=== PATIENT | female | born 1960 | race Caucasian/White ===

== ENCOUNTER 2017-12-03 12:58 | Outpatient (CLI) | payer BC | END 2017-12-03 12:59 | disposition home or self-care (01) | LOC: BICMAMMO 12:58 | PROVIDERS: ATTEND Obstetrics & Gynecology | DX: Z12.31 Encounter for screening mammogram for malignant neoplasm of breast (principal); R92.1 Mammographic calcification found on diagnostic imaging of breast | CPT/HCPCS: 77063; 77067 ==

== ENCOUNTER 2021-03-18 11:49 | Outpatient (CLI) | payer BC ==
[2021-03-18 12:56] LABS: Hemoglobin 13.1 g/dL (12.0-15.5); Mean Corpuscular HGB CONC 32.7 g/dL (32.0-36.0); Mean Corpuscular Hemoglobin 27.6 pg (27.0-33.0); Mean Corpuscular Volume 84.6 fl (81.6-98.3); Mean Platelet Volume 10.9 fl (7.4-10.4); Platelet Count 286 10x3/uL (150-450); Red Blood Cell (RBC) Count 4.74 10x6/uL (3.90-5.03); White Blood Cell (WBC) Count 4.6 10x3/uL (3.5-10.5)
[2021-03-18 13:21] LABS: INR-International Normal Ratio 0.9; PTT 25.4 sec (22.0-33.0); Prothrombin Time 10.3 sec (9.5-12.1)
[2021-03-18 22:22] LABS: SARS-CoV-2 PCR by NAA Not Detected (NotDetected)
== END 2021-03-18 11:50 | disposition home or self-care (01) ==
LOC: LABBT 11:49
PROVIDERS: ATTEND Neurological Surgery
DX: Z01.818 Encounter for other preprocedural examination (principal); M50.223 Other cervical disc displacement at C6-C7 level; Z20.822 Contact with and (suspected) exposure to COVID-19
CPT/HCPCS: 85027; 85610; 85730; 93005; 93010; U0003; U0005

== ENCOUNTER 2021-03-21 10:29 | Day surgery (SDC) | payer BC ==
[2021-03-20 13:30] VITALS: BMI 31.4
[2021-03-21] MEDS ORDERED: Neomycin-Polymyxin 1 ML AMP ONE (10:59)
[2021-03-21] MEDS ORDERED: Thrombin 5000 UNITS/5 ML VIAL ONE (10:59)
[2021-03-21] MEDS ORDERED: Fentanyl 100 MCG/2 ML VIAL ONE ×2 (11:11→12:22)
[2021-03-21] MEDS ORDERED: Midazolam HCl 2 mg/2 ml Vial ONE (11:11)
[2021-03-21] MEDS ORDERED: Levofloxacin 500 mg/D5W 100 ml Premix Bag ONE (12:13)
[2021-03-21] MEDS ORDERED: Clindamycin/D5W 900 mg/50 ml Premix Bag ONE (12:13)
[2021-03-21] MEDS ORDERED: Ondansetron PF 4 MG/2 ML Vial ONE (12:24)
[2021-03-21] MEDS ORDERED: Lidocaine 1% PF 5 ML VIAL ONE (12:24)
[2021-03-21] MEDS ORDERED: PHENYLEPHRINE-NS 100 MCG/ML 10 ML SYRINGE ONE (12:24)
[2021-03-21] MEDS ORDERED: Glycopyrrolate 0.2 MG/ML 5 ML SYRINGE ONE (12:24)
[2021-03-21] MEDS ORDERED: Rocuronium Bromide 10 MG/ML (10ML VIAL) ONE (12:24)
[2021-03-21] MEDS ORDERED: Dexamethasone 20 MG/5 ML VIAL ONE (12:24)
[2021-03-21] MEDS ORDERED: Succinylcholine 200 MG/10 ml SYRINGE FS ONE (12:24)
[2021-03-21] MEDS ORDERED: ePHEDrine 50 MG/ML VIAL ONE (12:24)
[2021-03-21] MEDS ORDERED: PROPOFOL 200 MG/20 ML VIAL ONE (12:24)
[2021-03-21] MEDS ORDERED: Lidocaine 1% w/Epinephrine 1:100K 20 ML VIAL ONE (12:39)
[2021-03-21] MEDS ORDERED: Promethazine HCl 25 MG/ML VIAL ONE (18:40)
[2021-03-21] MEDS ORDERED: HYDROcodone/Acetaminophen 7.5/325 mg Tablet ONE (19:18)
== END 2021-03-21 20:00 | disposition home or self-care (01) ==
LOC: SDC 10:29
PROVIDERS: ATTEND Neurological Surgery
PROC: 0RT30ZZ Resection of Cervical Vertebral Disc, Open Approach (ICD-10-PCS; principal; 2021-03-21)
PROC: 0RG20A0 Fusion of 2 or more Cervical Vertebral Joints with Interbody Fusion Device, Anterior Approach, Anterior Column, Open Approach (ICD-10-PCS; principal; 2021-03-21)
DX: M50.121 Cervical disc disorder at C4-C5 level with radiculopathy (principal); I10 Essential (primary) hypertension; E78.5 Hyperlipidemia, unspecified; E03.9 Hypothyroidism, unspecified; K21.9 Gastro-esophageal reflux disease without esophagitis; E78.00 Pure hypercholesterolemia, unspecified; M81.0 Age-related osteoporosis without current pathological fracture; G43.909 Migraine, unspecified, not intractable, without status migrainosus; Z79.82 Long term (current) use of aspirin; Z79.899 Other long term (current) drug therapy; Z88.0 Allergy status to penicillin; Z88.8 Allergy status to other drugs, medicaments and biological substances; Z91.048 Other nonmedicinal substance allergy status
CPT/HCPCS: 76000; C1713; C1776; J1100; J1956; J2250; J2405; J2550; J2704; J3010; J3490

== ENCOUNTER 2021-04-03 11:02 | Outpatient (CLI) | payer BC | END 2021-04-03 11:03 | disposition home or self-care (01) | LOC: TBSIIMAG 11:02 | PROVIDERS: ATTEND Neurological Surgery | DX: M50.30 Other cervical disc degeneration, unspecified cervical region (principal); Z98.1 Arthrodesis status | CPT/HCPCS: 72040 ==

== ENCOUNTER 2021-06-10 16:22 | Outpatient (CLI) | payer BC | END 2021-06-10 16:23 | disposition home or self-care (01) | LOC: RAD-FRANK 16:22 | PROVIDERS: ATTEND Nurse Practitioner Family | DX: R06.02 Shortness of breath (principal) | CPT/HCPCS: 71046 ==

== ENCOUNTER 2021-11-20 07:16 | Day surgery (SDC) | payer BC ==
[2021-11-15 13:56] VITALS: BMI 32.3
[2021-11-20 13:28] VITALS: BP 111/79
== END 2021-11-20 09:50 | disposition home or self-care (01) ==
LOC: RAD 07:16
PROVIDERS: ATTEND Neurological Surgery
PROC: B01B1ZZ Fluoroscopy of Spinal Cord using Low Osmolar Contrast (ICD-10-PCS; principal; 2021-11-20)
DX: M50.123 Cervical disc disorder at C6-C7 level with radiculopathy (principal); M47.22 Other spondylosis with radiculopathy, cervical region; Z79.82 Long term (current) use of aspirin; Z79.890 Hormone replacement therapy; Z79.899 Other long term (current) drug therapy; Z88.0 Allergy status to penicillin; Z88.8 Allergy status to other drugs, medicaments and biological substances; Z91.048 Other nonmedicinal substance allergy status; Z98.1 Arthrodesis status
CPT/HCPCS: 62302; 72126

== ENCOUNTER 2022-02-24 15:17 | Outpatient (CLI) | payer BC | END 2022-02-24 15:18 | disposition home or self-care (01) | LOC: RAD 15:17 | PROVIDERS: ATTEND Neurological Surgery | DX: M50.00 Cervical disc disorder with myelopathy, unspecified cervical region (principal); Z98.890 Other specified postprocedural states; Z98.1 Arthrodesis status | CPT/HCPCS: 72052 ==

== ENCOUNTER 2023-02-16 13:23 | Outpatient (CLI) | payer BC ==
[2023-02-16 14:06] LABS: Hemoglobin 13.7 g/dL (12.0-15.5); Mean Corpuscular HGB CONC 32.6 g/dL (32.0-36.0); Mean Corpuscular Hemoglobin 28.4 pg (27.0-33.0); Mean Platelet Volume 10.1 fl (7.4-10.4); Platelet Count 300 10x3/uL (150-450); RBC Distribution Width 14.6 % (11.5-14.5); Red Blood Cell (RBC) Count 4.83 10x6/uL (3.90-5.03); White Blood Cell (WBC) Count 7.5 10x3/uL (3.5-10.5)
[2023-02-16 14:16] LABS: PTT 28.5 sec (22.0-33.0); Prothrombin Time 10.3 sec (9.5-12.1)
== END 2023-02-16 13:24 | disposition home or self-care (01) ==
LOC: LABBT 13:23
PROVIDERS: ATTEND Neurological Surgery
DX: Z01.818 Encounter for other preprocedural examination (principal)
CPT/HCPCS: 85027; 85610; 85730; 93005; 93010

== ENCOUNTER 2023-02-16 13:30 | Inpatient (IN) | payer BC ==
[2023-02-16 14:01] VITALS: BMI 32.3
[2023-02-17] MEDS ORDERED: Thrombin 5000 UNITS/5 ML VIAL ONE (06:10)
[2023-02-17] MEDS ORDERED: Vancomycin 1 GM VIAL ONE (06:10)
[2023-02-17] MEDS ORDERED: Bupivacaine PF 0.5% 30 ML VIAL ONE (06:10)
[2023-02-17] MEDS ORDERED: EPINEPHrine 1 MG/ML AMP ONE (06:10)
[2023-02-17] MEDS ORDERED: Bacitracin Zinc Ointment 30 gm TUBE ONE (06:12)
[2023-02-17] MEDS ORDERED: Acetaminophen 500 MG TAB ONE (06:31)
[2023-02-17] MEDS ORDERED: Scopolamine 1.5 mg/72 hour Patch ONE (06:31)
[2023-02-17] MEDS ORDERED: Milk Of Magnesia 30 ML UDCUP PO PRN (06:38)
[2023-02-17] MEDS ORDERED: Promethazine HCl 25 MG/ML VIAL IM PRN ×2 (06:38→08:52)
[2023-02-17] MEDS ORDERED: Prochlorperazine 10 MG/2 ML VIAL IM PRN (06:38)
[2023-02-17] MEDS ORDERED: HYDROcodone/Acetaminophen 7.5/325 mg Tablet PO PRN (06:38)
[2023-02-17] MEDS ORDERED: Acetaminophen/Codeine 30-300mg Tablet PO PRN (06:38)
[2023-02-17] MEDS ORDERED: Acetaminophen 325 MG TAB PO PRN (06:38)
[2023-02-17] MEDS ORDERED: diphenhydrAMINE 50 MG/ML VIAL IVP PRN (06:38)
[2023-02-17] MEDS ORDERED: Bisacodyl 10 MG SUPP PR PRN (06:38)
[2023-02-17] MEDS ORDERED: Clindamycin/D5W 900 MG in Premix Bag 1 BAG IVPB SCH (06:45)
[2023-02-17] MEDS ORDERED: tiZANidine HCl 4 MG TAB PO PRN (06:45)
[2023-02-17] MEDS ORDERED: Famotidine/PF 20 mg/2ml Vial ONE (06:46)
[2023-02-17] MEDS ORDERED: Fentanyl 250 MCG/5 ML VIAL ONE (06:46)
[2023-02-17] MEDS ORDERED: Dexmedetomidine 200 MCG/2 ML VIAL ONE (06:46)
[2023-02-17] MEDS ORDERED: SUGAMMADEX SODIUM 200 MG/2 ML VIAL ONE ×2 (06:47→10:08)
[2023-02-17] MEDS ORDERED: Clindamycin/D5W 600 mg/50 ml Premix Bag ONE (06:47)
[2023-02-17] MEDS ORDERED: HYDROmorphone 0.5 MG/0.5 ML SYRINGE ONE (06:47)
[2023-02-17] MEDS ORDERED: LevoFLOXacin 500 mg/D5W 100 ML BAG ONE (07:08)
[2023-02-17] MEDS ORDERED: Midazolam HCl 2 mg/2 ml Vial ONE (07:14)
[2023-02-17] MEDS ORDERED: LevoFLOXacin 500 mg/D5W 500 MG in Premix Bag 1 BAG IVPB SCH (07:15)
[2023-02-17] MEDS ORDERED: Clindamycin/D5W 600 MG in Premix Bag 1 BAG IVPB SCH (07:15)
[2023-02-17] MEDS ORDERED: Clindamycin/D5W 300 MG in Premix Bag 1 BAG IVPB SCH (07:15)
[2023-02-17] MEDS ORDERED: PROPOFOL 200 MG/20 ML VIAL ONE (07:26)
[2023-02-17] MEDS ORDERED: PHENYLEPHRINE-NS 100 MCG/ML 10 ML SYRINGE ONE (07:26)
[2023-02-17] MEDS ORDERED: ePHEDrine Sulfate 50 MG/10 ML VIAL ONE (07:26)
[2023-02-17] MEDS ORDERED: Rocuronium Bromide 10 MG/ML (10ML VIAL) ONE (07:26)
[2023-02-17] MEDS ORDERED: Lidocaine 1% PF 5 ML VIAL ONE (07:26)
[2023-02-17] MEDS ORDERED: diphenhydrAMINE 50 MG/ML VIAL ONE (07:26)
[2023-02-17] MEDS ORDERED: Glycopyrrolate 0.2 MG/ML 5 ML SYRINGE ONE (07:26)
[2023-02-17] MEDS ORDERED: Ondansetron PF 4 MG/2 ML Vial ONE (07:26)
[2023-02-17] MEDS ORDERED: Scopolamine 1.5 mg/72 hour Patch TD SCH (08:00)
[2023-02-17] MEDS ORDERED: Ondansetron HCl/PF 4 MG/2 ML Vial IVP PRN (08:52)
[2023-02-17] MEDS ORDERED: HYDROmorphone 2 MG/ML VIAL SLOW IVP PRN (08:52)
[2023-02-17] MEDS: Sodium Chloride 0.9% 1,000 ML IV SCH ×2 (12:42→12:53)
[2023-02-17] MEDS: Cholecalciferol 1,000 UNITS (25 MCG) TAB PO SCH (12:44)
[2023-02-17] MEDS: Morphine 2 MG/ML VIAL SLOW IVP PRN ×5 (12:48→21:31)
[2023-02-17] MEDS: Clindamycin/D5W 300 MG in Premix Bag 1 BAG IVPB SCH (15:04)
[2023-02-17] MEDS: Clindamycin/D5W 600 MG in Premix Bag 1 BAG IVPB SCH (15:05)
[2023-02-17] MEDS: HYDROcodone/Acetaminophen 10/325 mg Tablet PO PRN ×2 (16:31→20:26)
[2023-02-17] MEDS: Ondansetron PF 4 MG/2 ML Vial IVP PRN (20:25)
[2023-02-17] MEDS ORDERED: Simvastatin 10 MG TAB PO SCH (21:00)
[2023-02-18] MEDS: Clindamycin/D5W 300 MG in Premix Bag 1 BAG IVPB SCH (01:08)
[2023-02-18] MEDS: HYDROcodone/Acetaminophen 10/325 mg Tablet PO PRN ×2 (01:08→05:43)
[2023-02-18] MEDS: Clindamycin/D5W 600 MG in Premix Bag 1 BAG IVPB SCH (01:08)
[2023-02-18 05:48] LABS: #Monocytes 0.8 thou/uL (0.11-0.59); #Neutrophils 6.2 thou/uL (1.40-6.50); %Basophils 0.2 % (0.0-1.0); %Eosinophils 0.4 % (0.0-10.0); %Lymphocytes 17.5 % (21.0-51.0); %Monocytes 9.3 % (0.0-10.0); %Neutrophils 72.4 % (42.0-75.0); Hematocrit 36.1 % (36.0-47.0); Hemoglobin 11.6 g/dL (12.0-16.0); Mean Corpuscular HGB CONC 32.1 g/dL (32.0-36.0); Mean Corpuscular Hemoglobin 28.5 pg (27.0-31.0); Mean Corpuscular Volume 88.7 fl (78.0-98.0); Mean Platelet Volume 9.9 fL (7.4-10.4); Platelet Count 222 10x3/uL (130-400); RBC Distribution Width 14.5 % (11.5-14.5); Red Blood Cell (RBC) Count 4.07 mill/uL (4.20-5.40); White Blood Cell (WBC) Count 8.6 10x3/uL (4.8-10.8)
[2023-02-18] MEDS ORDERED: Levothyroxine Sodium 75 MCG TAB PO SCH (06:00)
[2023-02-18 07:00] LABS: Anion Gap 13 mmol/L (10-20); BUN (Urea Nitrogen) 13 mg/dL (9.8-20.1); Calc. Creatinine Clearance 88 mL/min (70-130); Calcium 8.5 mg/dL (7.8-10.44); Carbon Dioxide 25 mmol/L (23-31); Chloride 101 mmol/L (98-107); Estimated GFR 68; Glucose 109 mg/dL (80-115); Potassium 3.8 mmol/L (3.5-5.1); Sodium 135 mmol/L (136-145)
[2023-02-18] MEDS: Ondansetron PF 4 MG/2 ML Vial IVP PRN (08:33)
[2023-02-18] MEDS: Cholecalciferol 1,000 UNITS (25 MCG) TAB PO SCH (08:40)
[2023-02-18 13:13] VITALS: BP 130/83; TEMP 99.5
== END 2023-02-18 14:16 | disposition home or self-care (01) | DRG 473 ==
LOC: SURG A 02-17 05:39 → SJJU 02-17 12:17
PROVIDERS: ADMIT Neurological Surgery; ATTEND Neurological Surgery
PROC: 0RG2071 Fusion of 2 or more Cervical Vertebral Joints with Autologous Tissue Substitute, Posterior Approach, Posterior Column, Open Approach (ICD-10-PCS; principal; 2023-02-17)
DX: M96.0 Pseudarthrosis after fusion or arthrodesis (principal); I10 Essential (primary) hypertension; E03.9 Hypothyroidism, unspecified; M81.0 Age-related osteoporosis without current pathological fracture; E78.00 Pure hypercholesterolemia, unspecified; G43.909 Migraine, unspecified, not intractable, without status migrainosus
CPT/HCPCS: 36415; 80048; 85025; 85027; 85610; 85730; 93005; 93010; C1713; C1776; J0171; J1170; J1200; J1956; J2250; J2272; J2405; J2704; J3010; J3370; J3490; J7050; S0020; S0028

== ENCOUNTER 2023-04-14 09:44 | Outpatient (CLI) | payer BC | END 2023-04-14 09:45 | disposition home or self-care (01) | LOC: SCSRAD 09:44 | PROVIDERS: ATTEND Neurological Surgery | DX: M47.812 Spondylosis without myelopathy or radiculopathy, cervical region (principal); Z98.890 Other specified postprocedural states | CPT/HCPCS: 72040 ==